=== PATIENT | male | born 1940 ===

== ENCOUNTER 2020-12-29 14:31 | Emergency (ER) | payer MEDICARE ==
[2020-12-29] MEDS ORDERED: Boostrix 0.5 ML (Tdap) VIAL ONE (18:28)
== END 2020-12-29 18:35 | disposition home or self-care (01) ==
LOC: ERS 14:31
DX: T81.89XA Other complications of procedures, not elsewhere classified, initial encounter (principal); M19.90 Unspecified osteoarthritis, unspecified site; M48.00 Spinal stenosis, site unspecified; E11.9 Type 2 diabetes mellitus without complications; Z79.899 Other long term (current) drug therapy; Z79.1 Long term (current) use of non-steroidal anti-inflammatories (NSAID); Z23 Encounter for immunization
CPT/HCPCS: 90471; 90715